=== PATIENT | male | born 1990 | race Hispanic/Latino ===

== ENCOUNTER 2019-04-06 12:37 | Emergency (ER) | payer SELFPAY ==
[2019-04-06] MEDS ORDERED: TETANUS & DIPHTHERIA TOX,ADULT 0.5 ML VIAL ONE (13:08)
[2019-04-06] MEDS ORDERED: HYDROCODONE/APAP 10/325 TAB ONE (13:08)
[2019-04-06] MEDS ORDERED: KETOROLAC 30 MG/ML INJ ONE (13:08)
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
[2019-04-06 15:24] VITALS: TEMP 98.2; O2SAT 100
[2019-04-06 15:27] VITALS: BP 127/79
== END 2019-04-06 15:04 | disposition home or self-care (01) ==
LOC: ER 12:37
DX: S90.512A Abrasion, left ankle, initial encounter (principal); S16.1XXA Strain of muscle, fascia and tendon at neck level, initial encounter; V29.9XXA Motorcycle rider (driver) (passenger) injured in unspecified traffic accident, initial encounter; Z23 Encounter for immunization; Z72.0 Tobacco use
CPT/HCPCS: 70450; 71045; 72125; 72170; 90471; 90714; 96374; 99284